=== PATIENT | male | born 1955 | race Caucasian/White ===

== ENCOUNTER 2018-08-14 09:22 | Day surgery (SDC) | payer BC ==
[2018-08-14] MEDS ORDERED: Lactated Ringer's 1,000 ML IV ONE (11:55)
[2018-08-14] MEDS ORDERED: Propofol 10 mg/ml Inj (20 ML) ONE ×2 (12:03→12:11)
[2018-08-14] MEDS ORDERED: Midazolam 2 MG/2 ML VIAL ONE (12:34)
[2018-08-14 13:03] VITALS: TEMP 97.8
[2018-08-14 13:34] VITALS: BP 133/88; PULSE 60; RESP 12; O2SAT 99
== END 2018-08-14 13:33 | disposition home or self-care (01) ==
LOC: C.ENDO 09:22
PROVIDERS: ATTEND Internal Medicine Gastroenterology
DX: Z12.11 Encounter for screening for malignant neoplasm of colon (principal); D12.3 Benign neoplasm of transverse colon; D12.5 Benign neoplasm of sigmoid colon; K64.1 Second degree hemorrhoids; I10 Essential (primary) hypertension; K21.9 Gastro-esophageal reflux disease without esophagitis; E55.9 Vitamin D deficiency, unspecified; Z98.890 Other specified postprocedural states; Z79.2 Long term (current) use of antibiotics; Z79.899 Other long term (current) drug therapy
CPT/HCPCS: 45385; 88305; J2001; J2250; J2704; J7120